=== PATIENT | female | born 1950 | race Caucasian/White ===

== ENCOUNTER → 2018-05-17 | Outpatient (CLI) | payer MEDICARE, BC ==
[~2018-05-17] MED LIST: CHOL200074 PO; IRON PO; LOSA50TA80 PO; MOD PO; MOM PO; OMEP-125 PO; OXYC-865 PO; OXYC20TA86 PO; PER PO; POTA10CA61 PO; POTA75TA PO; POTASSIUM PO; PRA1 PO; PRAV10TA45 PO; PRAV20TA66 PO; PRAZ1CAP25 PO; TRAM-420 PO
[2018-05-17 08:20] LABS: PLATELET COUNT, AUTOMATED 289 K/uL (150-450)
--- NOTE | 2018-05-17 08:35 | EKG ---
[facility] PATIENT NAME: NEELIMA GOMEZ : [id number] MR: [id number] V: [id number] EXAM DATE: ORDERING PHYSICIAN: BARBY ORDONEZ TECHNOLOGIST: SHALOM Test Reason : PRE OP Blood Pressure : / mmHG Vent. Rate : 068 BPM Atrial Rate : 068 BPM P-R Int : 170 ms QRS Dur : 088 ms QT Int : 446 ms P-R-T Axes : 067 031 042 degrees QTc Int : 474 ms Sinus rhythm Probable biatrial enlargement T wave abnormality, consider anterolateral ischemia Prolonged QTc Abnormal ECG When compared with ECG of 16-MAR-2015 08:02, T wave inversion now evident in Lateral leads Confirmed by ABDIRAHMAN RADER ([id number]) on 05/17/2018 2:50:51 PM Referred By: MERY Confirmed By:ABDIRAHMAN RADER
== END ==
LOC: LAB 08:06
PROVIDERS: ATTEND Anesthesiology
DX: Z01.810 Encounter for preprocedural cardiovascular examination (principal); Z01.812 Encounter for preprocedural laboratory examination; R94.31 Abnormal electrocardiogram [ECG] [EKG]; M48.061 Spinal stenosis, lumbar region without neurogenic claudication; M47.896 Other spondylosis, lumbar region
CPT/HCPCS: 36415; 82040; 82247; 82310; 82374; 82435; 82565; 82947; 84075; 84132; 84155; 84295; 84450; 84460; 84520; 85025; 93005

== ENCOUNTER 2018-05-24 02:56 | Inpatient (IN) | payer MEDICARE, BC ==
[2018-05-24] VITALS (9 sets, daily range): BP systolic 120–158; BP diastolic 62–91
[~2018-05-24] VITALS: Ht 177.8 cm; Wt 81.6 kg
[2018-05-24] MEDS ORDERED: CLINDAMYCIN(*) 900 MG/NS 50 ML 50 ML IVPB ONE (11:30)
[2018-05-24] MEDS ORDERED: MIDAZOLAM 2 MG/2 ML VIAL IVP PRN (11:30)
[2018-05-24] MEDS ORDERED: LIDOCAINE/SOD BICARB 8.4% SYR ID ONE (11:30)
[2018-05-24] MEDS ORDERED: PREGABALIN 150 MG CAPSULE PO ONE (11:30)
[2018-05-24] MEDS ORDERED: ACETAMINOPHEN 500 MG TAB PO ONE (11:30)
[2018-05-24] MEDS ORDERED: NORMOSOL R SOLN(*) 1000 ML BAG 1,000 ML IV PRN (11:30)
[2018-05-24] MEDS ORDERED: LIDOCAINE/SOD BICARB 8.4% SYR ONE (13:27)
[2018-05-24] MEDS ORDERED: REMIFENTANIL HCL 1 MG VIAL ONE (13:40)
[2018-05-24] MEDS ORDERED: fentaNYL CITR 250 MCG/5 ML AMP ONE (15:07)
[2018-05-24] MEDS ORDERED: LIDOCAINE MPF 1% 5 ML VIAL ONE (15:43)
[2018-05-24] MEDS ORDERED: ONDANSETRON 4 MG/2 ML VIAL ONE (15:43)
[2018-05-24] MEDS ORDERED: SUGAMMADEX SOD 200 MG/2 ML SDV ONE (15:45)
[2018-05-24] MEDS ORDERED: ROPIVACAINE 0.2% 20 ML VIAL ONE (15:59)
[2018-05-24] MEDS ORDERED: THROMBIN (BOVINE) 20,000 UNIT VIAL ONE (15:59)
[2018-05-24] MEDS ORDERED: MIDAZOLAM 2 MG/2 ML VIAL ONE (16:29)
[2018-05-24] MEDS ORDERED: KETAMINE HCL 200 MG/20 ML MDV ONE (16:48)
[2018-05-24] MEDS ORDERED: PROPOFOL EMUL(*) 10MG/ML 20 ML 20 ML ONE ×2 (17:33→19:27)
[2018-05-24] MEDS ORDERED: PROPOFOL EMUL(*) 10MG/ML 20 ML 40 ML ONE (19:00)
[2018-05-24] MEDS ORDERED: VASOPRESSIN 20 UNIT/ML VIAL ONE (19:00)
[2018-05-24] MEDS ORDERED: HYDROmorphone HCL 2 MG/ML SDV IVP PRN (20:30)
[2018-05-24] MEDS ORDERED: ACETAMINOPHEN 500 MG TAB PO PRN (20:30)
[2018-05-24] MEDS ORDERED: FLUSH 10 ML SYR IVP PRN (20:30)
[2018-05-24] MEDS ORDERED: LR(*) 1000 ML BAG 1,000 ML IV PRN (20:30)
[2018-05-24] MEDS ORDERED: diphenhydrAMINE 25 MG CAP PO PRN (20:30)
[2018-05-24] MEDS ORDERED: BISACODYL 10 MG SUPP PR PRN (20:30)
[2018-05-24] MEDS ORDERED: BENZOCAINE/MENTHOL 1 EACH LOZG PO PRN (20:30)
[2018-05-24] MEDS ORDERED: oxyCODONE HCL 5 MG CAP PO PRN (20:30)
[2018-05-24] MEDS ORDERED: ONDANSETRON 4 MG/2 ML VIAL IVP PRN (20:30)
[2018-05-24] MEDS ORDERED: MAGNESIUM HYDROXIDE* 30ML UDCP PO PRN (20:30)
[2018-05-24] MEDS ORDERED: ACETAMINOPHEN(*)1000 MG/100 ML 100 ML IVPB PRN (20:30)
--- NOTE | 2018-05-24 20:30 | RADIOLOGY IMAGING REPORT ---
FACILITY: [facility] PATIENT NAME: Naya Amin : 1950 MR: [id number] V: [id number] EXAM DATE: ORDERING PHYSICIAN: ANSON SIMMS TECHNOLOGIST: Location: [facility] [place] Patient: Naya Amin : 1950 Visit/Account:[id number] Date of Sevice: 05/24/2018 L-SPINE >4 VIEWS Indication: Low back pain. Lumbar surgery. Procedure: Fluoroscopic guidance was provided for Dr. orthopedic surgery. Fluoroscopy time: Time not given Number of images: 2 images of the lumbar spine were obtained. Findings: Intraoperative images of the lumbar spine during posterior fusion at L4-5. There is anterio r spondylolisthesis at L4-5. IMPRESSION: Intraoperative lumbar spine films during fusion. Report Dictated By: Tevin Brown MD at 05/24/2018 8:24 PM Report E-Signed By: Tevin Brown MD at 05/24/2018 8:26 PM WSN:[id number]
[2018-05-24] MEDS ORDERED: fentaNYL CITR 100 MCG/2 ML AMP ONE (20:39)
[2018-05-24] MEDS: fentaNYL CITR 100 MCG/2 ML AMP ONE ×2 (20:56→21:08)
[2018-05-24] MEDS: DOCUSATE SODIUM 100 MG CAP PO SCH (21:00)
[2018-05-24] MEDS: DIAZEPAM 5 MG TAB PO PRN ×2 (21:11→23:48)
--- NOTE | 2018-05-24 22:24 | Hospitalist Progress Note ---
Subjective Progress Notes Subjective Patient seen post-op. Reviewed PMHx (CITLALLI, HTN, GERD) and medications. At present she c/o some mid-back pain. No SOB/CP/N/V. Physical Exam Vital Signs Date Time Temp Pulse Resp B/P (MAP) Pulse Ox O2 Delivery O2 Flow Rate FiO2 05/24/18 21:45 63 12 98 05/24/18 13:28 97.3 154/82 (106) Room Air General Appearance: Alert, Awake Cardiovascular: Regular Rate and Rhythm (possible soft systolic murmur best at LUSB) Respiratory: Clear to Auscultation Assessment and Plan Problems: (1) HTN (hypertension) Status: Chronic Assessment & Plan: Monitor BPs. Will resume her losartan and amiloride/HCTZ with parameters. (2) GERD (gastroesophageal reflux disease) Status: Chronic Assessment & Plan: Will continue PPI therapy (Protonix) while here. (3) CITLALLI on CPAP Status: Chronic Assessment & Plan: Will continue with her usual settings. ABDIRAHMAN RADER MD May 24, 2018 22:24
[2018-05-25] VITALS (11 sets, daily range): BP systolic 100–138; BP diastolic 52–80; Ht 177.8 cm; Wt 81.6 kg
[2018-05-25] MEDS: CLINDAMYCIN(*) 900 MG/NS 50 ML 50 ML IVPB SCH ×3 (00:31→16:48)
[2018-05-25] MEDS: APAP/HYDROCODONE 325/5 TAB PO PRN ×4 (02:33→20:16)
[2018-05-25] MEDS: LOSARTAN POTASSIUM 50 MG TAB PO SCH (09:00)
[2018-05-25] MEDS: DOCUSATE SODIUM 100 MG CAP PO SCH ×2 (09:31→20:29)
[2018-05-25] MEDS: PANTOPRAZOLE SOD 40 MG TABEC PO SCH ×2 (09:31→20:30)
[2018-05-25] MEDS: DIAZEPAM 5 MG TAB PO PRN (10:18)
--- NOTE | 2018-05-25 11:47 | Hospitalist Progress Note ---
Subjective Progress Notes Subjective She was admitted after lumbar surgery. She denies headache from dural leak. She has no complaints. She had no acute events overnight. Patient Complains of: Cardiovascular: No: Chest Pain Respiratory: No: Shortness of Breath Physical Exam Vital Signs Date Time Temp Pulse Resp B/P (MAP) Pulse Ox O2 Delivery O2 Flow Rate FiO2 05/25/18 06:58 98.7 66 18 118/61 (80) 99 Room Air 05/25/18 06:15 2.0 Intake and Output 05/25/18 07:00 Intake Total 4350 ml Output Total 700 ml Balance 3650 ml Intake Oral 1500 ml IV Total 2850 ml Output Urine Total 500 ml Estimated Blood Loss 200 ml # Voids 1 General Appearance: Alert, Awake, No Acute Distress, Afebrile Neuro: No Gross deficits Cardiovascular: Regular Rate and Rhythm Respiratory: No Respiratory Distress, Clear to Auscultation GI: Soft and Non-Tender Psych: Alert & Oriented X3, Appropriate Mood & Affect Assessment and Plan Problems: (1) HTN (hypertension) Status: Chronic Assessment & Plan: Monitor BPs. Will resume her losartan and amiloride/HCTZ with parameters. (2) GERD (gastroesophageal reflux disease) Status: Chronic Assessment & Plan: Will continue PPI therapy (Protonix) while here. (3) CITLALLI on CPAP Status: Chronic Assessment & Plan: Will continue with her usual settings. Exam Sepsis Risk: No Definite Risk AKOSUA FORBESP May 25, 2018 11:47
--- NOTE | 2018-05-25 15:32 | NUR ---
Physical Therapy Impression Pt was on bed rest d/t dural leak, HOB elevated by RN as directed by Dr. Love. Pt at 45* without headache and safe to mobilize at this time. Pt completed bed mobility with HOB raised and pivoting out of bed while maintaining a neutral spine. Once seated at EOB, pt reports slight "whooziness" but is agreeable to attempt to stand. Pt attempted to rise to a standing position, but reported increased lightheadedness, requiring modA x2 to return to supine position d/t near syncope. BP assessed and 96/46 mmHg once supine. Nursing present to assist pt at end of session. PT encouraged pt to mobilize with staff this evening as tolerated to assist with orthostatic hypotension. Physical Therapy Goals 1: Pt to complete bed mobility with Seferino 2: pt to complete transfers with Seferino 3: Pt to ambulate 150' with Seferino 4: Pt to asc/desc 1 stair with SBA Patient's Goals
[2018-05-25] MEDS ORDERED: NS(*) 0.9% 1000 ML BAG 1,000 ML IV ONE (16:10)
[2018-05-25] MEDS ORDERED: ROCURONIUM BROM 10 MG/ML 5 ML ONE (16:43)
[2018-05-26] VITALS (19 sets, daily range): BP systolic 97–150; BP diastolic 55–89
[2018-05-26] MEDS: APAP/HYDROCODONE 325/5 TAB PO PRN ×4 (00:20→20:28)
[2018-05-26] MEDS: DIAZEPAM 5 MG TAB PO PRN ×3 (01:49→17:19)
[2018-05-26] MEDS ORDERED: DOCU240C84 PO (07:17)
[2018-05-26] MEDS ORDERED: LOR5/325 PO (07:18)
[2018-05-26] MEDS ORDERED: DIA5 PO (07:18)
[2018-05-26] MEDS: LOSARTAN POTASSIUM 50 MG TAB PO SCH (09:00)
[2018-05-26] MEDS: DOCUSATE SODIUM 100 MG CAP PO SCH ×2 (09:24→20:26)
[2018-05-26] MEDS: PANTOPRAZOLE SOD 40 MG TABEC PO SCH ×2 (09:24→20:28)
--- NOTE | 2018-05-26 09:59 | Hospitalist Progress Note ---
Subjective Progress Notes Subjective She was admitted after back surgery. She has no complaints this morning. She had no acute events overnight. Patient Complains of: Cardiovascular: No: Chest Pain Respiratory: No: Shortness of Breath Physical Exam Vital Signs Date Time Temp Pulse Resp B/P (MAP) Pulse Ox O2 Delivery O2 Flow Rate FiO2 05/26/18 09:27 83 05/26/18 06:51 98.6 77 18 128/74 (92) Nasal Cannula 1.0 Intake and Output 05/26/18 07:00 Intake Total 875 ml Output Total 250 ml Balance 625 ml Intake Oral 770 ml IV Total 105 ml Output Urine Total 250 ml # Voids 1 General Appearance: Alert, Awake, No Acute Distress, Afebrile Neuro: No Gross deficits Cardiovascular: Regular Rate and Rhythm Respiratory: No Respiratory Distress, Clear to Auscultation GI: Soft and Non-Tender Psych: Alert & Oriented X3, Appropriate Mood & Affect Assessment and Plan Problems: (1) HTN (hypertension) Status: Chronic Assessment & Plan: Monitor BPs. Will resume her losartan and hold her amilorid e/HCTZ for two days then resume. If she feels dizzy, she will stop medication and follow up with PCP. (2) GERD (gastroesophageal reflux disease) Status: Chronic Assessment & Plan: Will continue PPI therapy (Protonix) while here. (3) CITLALLI on CPAP Status: Chronic Assessment & Plan: Will continue with her usual settings. Exam Sepsis Risk: No Definite Risk AKOSUA FORBES May 26, 2018 09:59
--- NOTE | 2018-05-26 10:33 | NUR ---
Physical Therapy Impression PT goals met with pt able to demo good log roll technique from flat bed and ambulation x 150' with FWW and SBA/Modified indep. Pt gisela up/down platform step with FWW x 2 and VS in safe range throughout with HR and spO2. Physical Therapy Goals 1: Pt to complete bed mobility with Seferino 2: pt to complete transfers with Seferino 3: Pt to ambulate 150' with Seferino 4: Pt to asc/desc 1 stair with SBA Patient's Goals
[2018-05-26] MEDS ORDERED: ADENOSINE(*)IV SOLN 3MG/ML IVP ONE ×2 (13:10→13:20)
[2018-05-26 13:17] LABS: PLATELET COUNT, AUTOMATED 289 K/uL (150-450)
--- NOTE | 2018-05-26 13:36 | EKG ---
FACILITY: [facility] - [place], [place] PATIENT NAME: NEELIMA GOMEZ : [id number] MR: [id number] V: [id number] EXAM DATE: ORDERING PHYSICIAN: AKOSUA FORBES TECHNOLOGIST: JANET Mazariegos Reason : POST TACHYCARDIA Blood Pressure : / mmHG Vent. Rate : 090 BPM Atrial Rate : 090 BPM P-R Int : 148 ms QRS Dur : 086 ms QT Int : 386 ms P-R-T Axes : 052 -44 038 degrees QTc Int : 472 ms Normal sinus rhythm Left axis deviation Possible Inferior infarct , age undetermined Cannot rule out Anterior infarct , age undetermined Abnormal ECG No previous ECGs available Confirmed by BARBY DE LA CRUZ ([id number]) on 05/26/2018 1:43:18 PM Referred By: LEIDY Confirmed By:BARBY DE LA CRUZ
--- NOTE | 2018-05-26 13:37 | EKG ---
FACILITY: [facility] [place] PATIENT NAME: NEELIMA GOMEZ : [id number] MR: [id number] V: [id number] EXAM DATE: ORDERING PHYSICIAN: AKOSUA FORBES TECHNOLOGIST: Test Reason : TACHYCARDIA Blood Pressure : / mmHG Vent. Rate : 148 BPM Atrial Rate : 153 BPM P-R Int : 000 ms QRS Dur : 082 ms QT Int : 354 ms P-R-T Axes : 000 -87 -10 degrees QTc Int : 555 ms Supraventricular tachycardia Low voltage QRS Left anterior fascicular block Inferior infarct , age undetermined Possible Anterolateral infarct , age undetermined Abnormal ECG When compared with ECG of 17-MAY-2018 08:23, Significant changes have occurred Confirmed by BARBY DE LA CRUZ ([id number]) on 05/26/2018 1:43:13 PM Referred By: Confirmed By:BARBY DE LA CRUZ
--- NOTE | 2018-05-26 13:41 | Miscellaneous Provider Note ---
Miscellaneous Provider Note Note I was called by nursing staff notified that patient had heart rates in the 150's and felt "clammy". She was placed on telemetry. I ordered an EKG, which showed SVT. She was given Adenosine 6mg, then 12mg with success of normal heart rhythm confirmed by repeat EKG. Ordered labs, will review with patient once received. She denies CP or SOB at this time. AKOSUA FORBES May 26, 2018 13:41
[2018-05-26] MEDS ORDERED: IV BOLUS 500 ML IVSOL IV ONE (14:00)
[2018-05-26] MEDS ORDERED: KCL (*) 20 MEQ/100 ML PREMIX 100 ML IV ONE (14:00)
[2018-05-26] MEDS: NS(*) 0.9% 1000 ML BAG 1,000 ML IV PRN ×2 (14:10→20:26)
[2018-05-26] MEDS ORDERED: SALINE 0.65% NAS SPR 44 ML BTL PRN (14:25)
[2018-05-26] MEDS ORDERED: MAGNESIUM SUL* 4 GM/100 ML BAG 100 ML IVPB ONE (15:00)
[2018-05-26] MEDS: guaiFENesin 600 MG TABCR PO SCH ×2 (15:03→20:28)
[2018-05-26] MEDS: DOXYCYCLINE HYCL 100 MG TAB PO SCH (20:26)
[2018-05-27] MEDS: DIAZEPAM 5 MG TAB PO PRN ×2 (02:15→10:14)
[2018-05-27] MEDS: APAP/HYDROCODONE 325/5 TAB PO PRN ×3 (02:15→14:02)
[2018-05-27 02:16] VITALS: BP 142/72
[2018-05-27 08:21] LABS: PLATELET COUNT, AUTOMATED 267 K/uL (150-450)
[2018-05-27] MEDS: guaiFENesin 600 MG TABCR PO SCH (09:54)
[2018-05-27] MEDS: DOCUSATE SODIUM 100 MG CAP PO SCH (09:54)
[2018-05-27] MEDS: PANTOPRAZOLE SOD 40 MG TABEC PO SCH (09:54)
[2018-05-27] MEDS: LOSARTAN POTASSIUM 50 MG TAB PO SCH ×2 (09:54→10:10)
[2018-05-27] MEDS: DOXYCYCLINE HYCL 100 MG TAB PO SCH (09:54)
[2018-05-27 10:00] VITALS: BP 123/79
[2018-05-27] MEDS ORDERED: POTASSIUM CHL 20 MEQ TABCR PO ONE (10:00)
[2018-05-27] MEDS ORDERED: DOXY-228 PO (10:02)
--- NOTE | 2018-05-27 10:20 | Hospitalist Progress Note ---
Subjective Progress Notes Subjective She was admitted after back surgery. She had no further episodes of SVT overnight. She has no complaints this morning. Patient Complains of: Cardiovascular: No: Chest Pain Respiratory: No: Shortness of Breath Physical Exam Vital Signs Date Time Temp Pulse Resp B/P (MAP) Pulse Ox O2 Delivery O2 Flow Rate FiO2 05/27/18 10:00 98.4 78 16 123/79 (94) 92 Nasal Cannula 1.0 Intake and Output 05/27/18 07:00 Intake Total 504 ml Balance 504 ml Intake Oral 400 ml IV Total 104 ml # Voids 2 General Appearance: Alert, Awake, No Acute Distress, Afebrile Neuro: No Gross deficits Cardiovascular: Regular Rate and Rhythm Respiratory: No Respiratory Distress, Clear to Auscultation GI: Soft and Non-Tender Extremities: Warm, Perfused Psych: Alert & Oriented X3, Appropriate Mood & Affect Result Diagram: 05/27/18 0759 05/27/18 0759 Assessment and Plan Problems: (1) S/P lumbar fusion Status: Acute Assessment & Plan: Followed by Dr. Love. Doing well post-operatively. (2) SVT (supraventricular tachycardia) Status: Acute Assessment & Plan: She had an episode of SVT 05/26 with heart rate ranging in the 150's. She was given adenosine 6mg, then 12mg and converted. She was monitored overnight with no further episodes of SVT. (3) Hypokalemia Status: Acute Assessment & Plan: She was found to have potassium of 3.1. She was given IV potassium supplement and oral supplement with improvement in potassium. She is now 3.6. She will continue potassium supplement at home. (4) Hypomagnesemia Status: Acute Assessment & Plan: Magnesium was found to be 1.4. She received IV Magnesium 4gm. She is now 2.0. (5) Sinusitis Status: Acute Assessment & Plan: She had complaints of sinus pressure, congestion, and cough for 2 months. She had visible congestion and elevated WBC. She was started on Doxycycline for Sinusitis for 7 days and WBC count improved this morning. (6) HTN (hypertension) Status: Chronic Assessment & Plan: Will resume her losartan. Will stop her amiloride/HCTZ at this time secondary to decreased blood pressures and hypokalemia. She will continue potassium supplement. She will follow up next week with Dr. Driver for further management. (7) GERD (gastroesophageal reflux disease) Status: Chronic Assessment & Plan: Will continue PPI therapy, (Protonix) while here. (8) CITLALLI on CPAP Status: Chronic Assessment & Plan: Will continue with her usual settings. Copies to: VIC DRIVER DO ; Exam Sepsis Risk: No Definite Risk Problem Qualifiers (1) Sinusitis: Sinusitis location: frontal Chronicity: acute Recurrence: recurrent Qualified Codes: J01.11 - Acute recurrent frontal sinusitis (2) HTN (hypertension): Hypertension type: essential hypertension Qualified Codes: I10 - Essential (primary) hypertension AKOSUA FORBES REAL ESTATE CONSULTANT May 27, 2018 10:20
[2018-05-27 12:34] VITALS: BP 128/79
--- NOTE | 2018-05-31 11:00 | OPERATIVE REPORT 1 ---
EVENT DATE: May 24, 2018 SURGEON: Felipe Love MD ANESTHESIOLOGIST: Wyatt Lauren MD ANESTHESIA: General endotracheal MILLED LUMBER GRADER: Carter Coleman PA-C PREOPERATIVE DIAGNOSIS Lumbar spinal stenosis with L4-L5 spondylolisthesis. POSTOPERATIVE DIAGNOSIS Lumbar spinal stenosis with L4-L5 spondylolisthesis. PROCEDURE PERFORMED L2-L5 laminectomy with L4-L5 posterior lateral instrumented fusion. IV FLUIDS 2200 cc. ESTIMATED BLOOD LOSS 80 cc. IMPLANTS USED 1. 6.5 mm x 45 mm pedicle screws from [employer] x2. 2. 6.5 mm x 40 mm pedicle screws from [employer] x 2. 3. 45 mm connecting rods from [employer] x2. 3. Locking caps from [employer] x4. SPECIMENS None. DRAINS None. COMPLICATIONS There was an intraoperative incidental durotomy that will be discussed in the surgical narrative. DISPOSITION Post-Anesthesia Care Unit. INDICATIONS Ms. Amin is a 68-year old female who presented earlier this year with complaint of low back and radiating left posterior buttock and thigh pain. She had a long history of these problems but over the course of the last six weeks or so prior to her presentation she had worsening symptoms as well as weakness and a decrease in walking tolerance to only about one block secondary to pain, numbness and tingling down the leg. Her physical examination revealed 5/5 strength throughout and intact sensation. Her imaging studies showed an L4-L5 degenerative spondylolisthesis with mild to moderate stenosis at L2-L3, moderate stenosis at L3-L4 and moderate to severe stenosis at L4-L5. Ms. Amin had failed nonsurgical care and we had a long discussion regarding treatment options. She considered my offer of an L2-L5 laminectomy with L4-L5 fusion and elected to proceed. Prior to surgery, I discussed in detail with the patient the possible risks of surgery. These risks include bleeding, infection, damage to nerve roots, damage to surrounding structure, spinal fluid leak, meningitis, persistent and/or worsening pain, need for further surgery, , blindness, sexual dysfunction, autonomic nervous system dysfunction and unforeseen medical and surgical complications. An understanding that in general spinal surgery is more predictive at improving extremity discomfort than axial spine pain was stressed. DESCRIPTION OF PROCEDURE On the date of surgery, the patient was met in the preoperative hold area and all questions were answered. The operative site was identified and marked by myself. The patient was brought in good condition to the operating room and after succumbing to anesthesia was positioned in the prone position on a Zen table. All bony protuberances and soft tissues were well padded in the standard fashion. Care was taken to maintain appropriate perfusion pressures during anesthesia. Prior to incision, preoperative antibiotics were administered according to the appropriate timing schedule. At the conclusion of the procedure, the sponge and needle counts were correct x2. A final time-out was undertaken by members of the operating team to confirm correct levels, correct patient and correct surgery. A vertical incision was made overlying the intended surgical levels and sharp dissection was carried out down to the posterior elements. Soft tissues were elevated off the posterior elements in a subperiosteal manner and a lateral radiograph was obtained to confirm appropriate spinal levels. I cleared soft tissues off the L4 and L5 starting points for pedicle screw placement. This was at approximately the junction of the transverse process, superior aspect of the pars intra- articularis and the lateral aspect of the facet joint. Again, this was done bilaterally at L4 and L5. Thrombin soaked sponges were then placed in those lateral gutters to maintain space and control bleeding. Attention was turned to performance of the laminectomy. The laminas of L2, L3 and L4 were removed with the combination of a [place] rongeur and a [employer] bone cutter. The lamina was thinned down the midline using the [place] rongeur and a high-speed bur. I then entered the canal by using a curette to undermine the superior insertion of the ligamentum flavum from the inferior aspect of the L4 lamina. A [place] elevator was used prior to use of the Kerrison punch to free up any dural adhesions from surrounding bone and soft tissue. A midline decompression was performed using a #3 and #4 [place]ison rongeur from the to of L5 to the bottom of L1. A dome decompression was performed at the bottom of L1 and the top of L5. Bilateral lateral recess decompressions were then performed of L2, L3 and L4, thoroughly decompressing the lateral recesses and the foramina at all involved levels. As we were performing the decompression down at the L4-L5 level, there was significant adhesion, particularly on the right side, and as we were trying to free up the dura from surrounding soft tissue and thickened ligamentum flavum an incidental durotomy occurred on the right side. We packed this off and were able to complete our decompression of all the nerves involved and then at that point we turned our attention to placement of pedicle screws. We removed the previously placed thrombin soaked sponges and identified our starting points, which again were at the superior aspect of the pars intra-articularis, the mid point of the transverse processes and the lateral aspect of the facet joints. 5 mm high-speed bur was used to decorticate the starting points and then we used the Lenke style probe against resistance through the pedicles and into the vertebral bodies of L4 and L5. This was performed bilaterally at both of those levels. A ball-tip feeler was used to palpate the pedicle superiorly, inferiorly, medially and laterally to ensure absence of bony breaching. We palpated distally as well to ensure that we had not violated the anterior cortex of the vertebral body. We then placed 6.5 mm x 45 mm screws bilaterally at L4 and 6.5 mm x 40 mm screws bilaterally at L5. We tested the screws with neurophysiologic monitoring and they all tested greater than 20 milliamps. We then selected 45 mm connecting rods and placed these in the tulips of the screw heads. Locking caps were placed and tightened and then the final air conditioning mechanic industrial was used to finally tighten the locking caps. I then used the high-speed bur to decorticate the transverse processes of L4 and L5 bilaterally. Harvested local bone, which had been run through the bone mill, was then packed into those lateral gutters on both sides overlying the transverse processes that had been previously decorticated. Prior to decortication and placement of graft material, we did irrigate the entire wound with copious sterile saline solution. At the conclusion of the placement of our graft material, we then turned our attention to repair of the incidental durotomy. I used a 5-0 Gortex suture to primarily repair the dura and at the conclusion of that suture repair there was no further visible spinal fluid leakage. Nonetheless, we placed a patch of Duragen over the repair area and then sealed the entire repair as well as the entire laminectomy defect with DuraSeal. Multiple Valsalva maneuvers were then provided by Anesthesia and no further CSF leakage was noted. The wound was then closed in layers using interrupted sutures for the deep fascia, inverted interrupted sutures for the subcutaneous tissue and then a running subcuticular skin stitch. Sponge and needle counts were correct x2. POSTOPERATIVE CARE PLAN The patient will remain flat overnight and then we will gradually begin to sit her up tomorrow afternoon. As long as she does not experience a postural headache, she will get up and around with physical therapy and then be discharged home with instructions to follow up in two weeks' time. CECILY
== END 2018-05-27 15:55 | disposition home or self-care (01) | DRG 460 ==
LOC: OR 02:56 → MED 22:00
PROVIDERS: ADMIT Orthopaedic Surgery; ATTEND Orthopaedic Surgery
PROC: 01NB0ZZ Release Lumbar Nerve, Open Approach (ICD-10-PCS; 2018-05-24)
PROC: 00QT0ZZ Repair Spinal Meninges, Open Approach (ICD-10-PCS; 2018-05-24)
PROC: 5A09357 Assistance with Respiratory Ventilation, Less than 24 Consecutive Hours, Continuous Positive Airway Pressure (ICD-10-PCS; 2018-05-24)
PROC: 0SG0071 Fusion of Lumbar Vertebral Joint with Autologous Tissue Substitute, Posterior Approach, Posterior Column, Open Approach (ICD-10-PCS; principal; 2018-05-24 16:23)
DX: M48.062 Spinal stenosis, lumbar region with neurogenic claudication (principal); I47.1 Supraventricular tachycardia; G97.41 Accidental puncture or laceration of dura during a procedure; M43.16 Spondylolisthesis, lumbar region; I10 Essential (primary) hypertension; G47.33 Obstructive sleep apnea (adult) (pediatric); K21.9 Gastro-esophageal reflux disease without esophagitis; E87.6 Hypokalemia; E83.42 Hypomagnesemia; J01.11 Acute recurrent frontal sinusitis; Y83.8 Other surgical procedures as the cause of abnormal reaction of the patient, or of later complication, without mention of misadventure at the time of the procedure; Y79.3 Surgical instruments, materials and orthopedic devices (including sutures) associated with adverse incidents; Z99.81 Dependence on supplemental oxygen
CPT/HCPCS: 36415; 36416; 72020; 82040; 82247; 82310; 82374; 82435; 82565; 82947; 82948; 83735; 84075; 84132; 84155; 84295; 84450; 84460; 84484; 84520; 85025; 86850; 86900; 86901; 93005; 95940; 97161; C1713; C1763; J0131; J0153; J2001; J2250; J2405; J2704; J2795; J3010; J3475; J3480; J3490; J7030